=== PATIENT | female | born 1975 | race African-American/Black ===

== ENCOUNTER 2016-12-06 14:33 | Emergency (ER) | payer MEDICAID, OTHER ==
[~2016-12-06] VITALS: Ht 157.5 cm; Wt 79.4 kg
[2016-12-06] MEDS ORDERED: IPRATROPIUM BROM 0.5 MG/2.5ML INH SOL NEB ONE (15:30)
[2016-12-06] MEDS ORDERED: ALBUTEROL SULF 2.5 MG/0.5ML(0.5%) NEB SOLN NEB ONE (15:30)
[2016-12-06] MEDS ORDERED: cefTRIAXone SOD 1,000 MG VL IM ONE (15:30)
[2016-12-06] MEDS ORDERED: cloNIDine HCL 0.1 MG TAB PO ONE (15:30)
[2016-12-06] MEDS ORDERED: methylPREDNISolone SOD SUCC 125 MG/2 ML VL IM ONE (15:30)
[2016-12-06 16:47] VITALS: BP 129/90
== END 2016-12-06 16:46 | disposition home or self-care (01) ==
LOC: ER 14:33
DX: J20.9 Acute bronchitis, unspecified (principal); I10 Essential (primary) hypertension; F17.210 Nicotine dependence, cigarettes, uncomplicated
CPT/HCPCS: 94640; 96372; 99284; J0696; J2930

== ENCOUNTER 2018-06-06 15:00 | Emergency (ER) | payer MEDICAID ==
[~2018-06-06] VITALS: Ht 157.5 cm; Wt 79.8 kg
[2018-06-06 16:21] VITALS: BP 151/100
[2018-06-06] MEDS ORDERED: DEXAMETHASONE SOD PHOS 10MG/1ML VIAL INJ IM ONE (17:45)
[2018-06-06] MEDS ORDERED: KETOROLAC TROMETH 60MG/2ML VIAL IM ONE (17:45)
== END 2018-06-06 18:11 | disposition home or self-care (01) ==
LOC: ER 15:00
DX: S33.5XXA Sprain of ligaments of lumbar spine, initial encounter (principal); M54.16 Radiculopathy, lumbar region; M54.41 Lumbago with sciatica, right side; I10 Essential (primary) hypertension; F17.200 Nicotine dependence, unspecified, uncomplicated; X50.9XXA Other and unspecified overexertion or strenuous movements or postures, initial encounter; Y93.89 Activity, other specified; Y92.69 Other specified industrial and construction area as the place of occurrence of the external cause; Y99.8 Other external cause status
CPT/HCPCS: 96372; 99284; J1100; J1885

== ENCOUNTER 2018-08-20 13:27 | Emergency (ER) | payer MEDICAID ==
[~2018-08-20] VITALS: Ht 157.5 cm; Wt 78.0 kg
[2018-08-20 14:00] VITALS: BP 166/97
[2018-08-20 14:14] LABS: Urine Bacteria FEW /hpf (None Seen); Urine Blood 2+ /uL (Negative); Urine Mucus FEW (None Seen); Urine Specific Gravity 1.024 (1.001-1.035); Urine WBC 1 /hpf (0 - 5)
== END 2018-08-20 22:04 | disposition home or self-care (01) ==
LOC: ER 13:30
DX: D25.9 Leiomyoma of uterus, unspecified (principal); F17.210 Nicotine dependence, cigarettes, uncomplicated
CPT/HCPCS: 76830; 76856; 81001

== ENCOUNTER 2019-09-30 12:13 | Emergency (ER) | payer MEDICAID ==
[~2019-09-30] VITALS: Ht 157.5 cm; Wt 77.1 kg
[2019-09-30] MEDS ORDERED: LISINOPRIL 10 MG TAB ONE (12:20)
[2019-09-30] MEDS ORDERED: LISINOPRIL 10 MG TAB PO ONE (12:30)
[2019-09-30] MEDS ORDERED: KETOROLAC TROMETH 60MG/2ML VIAL IM ONE (17:15)
[2019-09-30 17:28] VITALS: BP 174/97
[2019-09-30 18:11] LABS: Urine Bacteria FEW /hpf (None Seen); Urine Blood Negative /uL (Negative); Urine Mucus FEW (None Seen); Urine Specific Gravity 1.018 (1.001-1.035); Urine WBC 3 /hpf (0 - 5)
== END 2019-09-30 18:23 | disposition home or self-care (01) ==
LOC: ER 12:13
DX: M54.16 Radiculopathy, lumbar region (principal); M54.41 Lumbago with sciatica, right side; I10 Essential (primary) hypertension; Z76.0 Encounter for issue of repeat prescription; Z32.02 Encounter for pregnancy test, result negative
CPT/HCPCS: 81001; 81025; 96372; 99283; J1885

== ENCOUNTER 2022-06-24 14:27 | Emergency (ER) | payer MEDICAID ==
[~2022-06-24] VITALS: Ht 157.5 cm; Wt 83.0 kg
[2022-06-24] MEDS ORDERED: cloNIDine HCL 0.1 MG TAB PO ONE (15:00)
[2022-06-24 15:38] VITALS: BP 200/117
[2022-06-24] MEDS ORDERED: CLON0.2T PO (16:43)
== END 2022-06-24 16:54 | disposition home or self-care (01) ==
LOC: ER 14:33
DX: S91.301A Unspecified open wound, right foot, initial encounter (principal); I10 Essential (primary) hypertension; F17.210 Nicotine dependence, cigarettes, uncomplicated; Z79.899 Other long term (current) drug therapy; W26.8XXA Contact with other sharp object(s), not elsewhere classified, initial encounter; Y93.89 Activity, other specified; Y92.89 Other specified places as the place of occurrence of the external cause; Y99.8 Other external cause status

== ENCOUNTER 2025-01-22 12:46 | Emergency (ER) | payer MEDICAID ==
[~2025-01-22] VITALS: Ht 157.5 cm; Wt 89.7 kg
[~2025-01-22 12:46] MED LIST: CLON0.2T PO
[2025-01-22] MEDS: HYDROcodone-ACET 5/325MG TAB PO ONE (13:15)
[2025-01-22] MEDS: cloNIDine HCL 0.1 MG TAB PO ONE (13:15)
--- NOTE | 2025-01-22 13:15 | ED.PDOC ---
GI ASSESSMENT HPI Comments A 49 year old female presents to the ED c/o lower abdominal pain. Patient states she has been experiencing lower abdominal pain and pelvic pain for the past 2 days. Patient notes she has a history of uterine fibroids in the past, but is not sure if this is what is causing her pain at this time. Patient also notes she has a history of hypertension, but has not taken her medication today as it is currently . Patient denies fever, SOB, chest pain, abdominal pain, nausea, vomiting, diarrhea, headache, dizziness. No other symptoms or modifying factors reported at this time. Patient is alert and oriented x4 and has a stable gait. Chief Complaint: Abdominal Pain Time Seen by MD: 13:03 Primary Care Provider: LAURA Sevilla Notes: Nurses Notes, Medications, Allergies Allergies: Coded Allergies: NO KNOWN ALLERGIES (Unverified , 09/30/19) Home Meds Active Scripts Clonidine Hydrochloride (Clonidine Hcl) 0.2 Mg Tab, 0.2 MG PO DAILY PRN for 20 Days, #20 TAB Prov:KASSIDY VEGA 06/24/22 Information Source: Patient Mode of Arrival: Ambulatory Timing: Days Duration: Since onset, Days Prehospital treatment: None Quality: Aching, Cramping Vomitus: None Stool: Normal Severity: Moderate Recent: None Recent Hx of: None Pain Location: Other (Lower abdomen) Modifying Factors: Nothing Associated sign and symptoms: Abdominal Pain Past Medical History PAST MEDICAL HISTORY: HTN Surgical History: Denies all surgeries [employer] History: Uterine Fibroids Family History Family History: Reviewed,noncontributory to illness Social History Smoker: Less Than 1 Pack/Day Alcohol: Denies ETOH Use Drugs: Denies Drug Use Lives In: Home Constitutional: denies: chills, diaphoresis, fatigue, fever, malaise, sweats, weakness, others EENTM: denies: blurred vision, double vision, ear bleeding, ear discharge, ear drainage, ear pain, ear ringing, eye pain, eye redness, hearing loss, mouth pain, mouth swelling, nasal discharge, nose bleeding, nose congestion, nose pain, photophobia, tearing, throat pain, throat swelling, voice changes, others Respiratory: denies: cough, hemoptysis, orthopnea, SOB at rest, shortness of breath, SOB with excertion, stridor, wheezing, others Cardiovascular: denies: chest pain, dizzy spells, diaphoresis, Dyspnea on exertion, edema, irregular heart beat, left arm pain, lightheadedness, palpitations, PND, syncope, others Gastrointestinal: reports: abdominal pain; denies: abdomen distended, blood streaked bowels, constipated, diarrhea, dysphagia, difficulty swallowing, hem atemesis, melena, nausea, poor appetite, poor fluid intake, rectal bleeding, rectal pain, vomiting, others Genitourinary: reports: pain (Pelvic pain); denies: abnormal vagina bleeding, burning, dyspareunia, dysuria, flank pain, frequency, hematuria, incontinence, , vagina discharge, urgency, others Neurological: denies: dizziness, fainting, headache, left sided numbness, left sided weakness, numbness, paresthesia, pre-existing deficit, right sided numbness, right sided weakness, seizure, speech problems, tingling, tremors, weakness, others Musculoskeletal: denies: back pain, gout, joint pain, joint swelling, muscle pain, muscle stiffness, neck pain, others Integumetry: denies: bruises, change in color, change in hair/nails, dryness, laceration, lesions, lumps, rash, wounds, others Allergic/Immunocompromised: denies: Difficulty Healing, Frequent Infections, Hives, Itching, others Hematologic/Lymphatic: denies: anemia, blood clots, easy bleeding, easy bruising, swollen glands, others Endocrine: denies: excessive hunger, excessive sweating, excessive thirst, excessive urination, flushing, intolerance to cold, intolerance to heat, unexplained weight gain, unexplained weight loss, others Psychiatric: denies: anxiety, bipolar disorder, depression, hopeless, panic disorder, schizophrenia, sleepless, suicidal, others All Other Systems: Reviewed and Negative Physical Exam General Appearance: No Apparent Distress, Normal HEENT: Normal ENT Inspection, Pharynx Normal, TMs Normal Neck: Full Range of Motion, Non-Tender, Normal, Normal Inspection Respiratory: Chest Non-Tender, Lungs Clear, No Accessory Muscle Use, No Respiratory Distress, Normal Breath Sounds Cardiovascular: No Edema, No JVD, No Murmur, No Gallop, Normal Peripheral Pulses, Regular Rate/Rhythm Breast Exam: Deferred Gastrointestinal: No Organomegaly, Non Tender, No Pulsatile Mass, Normal Bowel Sounds, Soft Genitalia: Deferred Pelvic: Deferred Rectal: Deferred Extremities: No calf tenderness, Normal capillary refill, Normal inspection, Normal range of motion, Non-tender, No pedal edema Musculoskeletal : Apperance: Normal Neurologic: Alert, advanced practice psychiatric nurse II-XII nml as Tested, No Motor Deficits, Normal Affect, Normal Mood, No Sensory Deficits Cerebellar Function: Normal Reflexes: Normal Skin: Dry, Normal Color, Warm Lymphatic: No Adenopathy Was a procedure done? Was a procedure done?: No GI differential Dx Differential Diagnosis: Constipation, Diverticular disease, Gastritis/PUD, Ovarian cyst/torsion, UTI, Dehydration, Food Poisoning, Viral, Kidney Stone Other Differential Diagnosis Uterine fibroid X-Ray, Labs, Meds, VS Vital Signs Date Time Temp Pulse Resp B/P (MAP) Pulse Ox O2 Delivery O2 Flow Rate FiO2 01/22/25 15:20 98.6 80 18 189/98 (128) 99 98.6 01/22/25 15:20 80 01/22/25 13:15 189/98 01/22/25 13:07 98.3 100 18 161/118 (132) 99 98.3 207/83 (124) Lab Test 01/22/25 13:21 01/22/25 13:05 Range/Units White Blood Count 5.4 4.4-10.8 10^3/uL Red Blood Count 5.08 4.0-5.20 10^6/uL Hemoglobin 15.9 12.2-16.2 g/dL Hematocrit 46.8 H 36.0-46.0 % Mean Corpuscular Volume 92.1 80.0-100.0 fL Mean Corpuscular Hemoglobin 31.3 28.0-32.0 pg Mean Corpuscular Hemoglobin Concent 33.9 32.0-36.0 g/dL Red Cell Distribution Width 14.0 11.8-14.3 % Platelet Count 211 140-450 10^3/uL Mean Platelet Volume 10.1 6.9-10.8 fL Neutrophils (%) (Auto) 47.9 37.0-80.0 % Lymphocytes (%) (Auto) 35.6 10.0-50.0 % Monocytes (%) (Auto) 13.4 H 0.0-12.0 % Eosinophils (%) (Auto) 2.3 0.0-7.0 % Basophils (%) (Auto) 0.8 0.0-2.0 % Neutrophils # (Auto) 2.6 1.6-8.6 10 ^3/uL Lymphocytes # (Auto) 1.9 0.4-5.4 10 ^3/uL Monocytes # (Auto) 0.7 0-1.3 10 ^3/uL Eosinophils # (Auto) 0.1 0-0.8 10 ^3/uL Basophils # (Auto) 0 0-0.2 10 ^3/uL Nucleated Red Blood Cells 0.1 % Sodium Level 138 136-145 mmol/L Potassium Level 3.6 3.5-5.1 mmol/L Chloride Level 108 H 98-107 mmol/L Carbon Dioxide Level 18 L 20-31 mmol/L Anion Gap 12 5-15 Blood Urea Nitrogen 7 L 9-23 mg/dL Creatinine 0.95 0.550-1.02 mg/dL Glomerular Filtration Rate Calc 74 >90 mL/min BUN/Creatinine Ratio 7.4 L 10.0-20.0 Serum Glucose 106 74-106 mg/dL Calcium Level 9.4 8.7-10.4 mg/dL Urine Color Yellow Yellow Urine Clarity Clear Clear Urine pH 6.0 5.0-9.0 Urine Specific [place] 1.021 1.001-1.035 Urine Protein Negative Negative Urine Ketones Negative Negative Urine Blood Negative Negative /uL Urine Nitrite Negative Negative Urine Bilirubin Negative Negative Urine Urobilinogen Normal Negative mg/dL Urine Leukocyte Esterase Negative Negative /uL Urine RBC 1 0 - 4 /hpf Urine Microscopic WBC < 1 0-5 /HPF Urine Squamous Epithelial Cells Few <5 /hpf Urine Bacteria None seen None Seen /hpf Urine Mucus Few None Seen Urine Glucose Normal Normal mg/dL Urine Test Negative Negative Current Medications Medications (Trade) Dose Ordered Sig/Elijah Route Start Time Stop Time Status Last Admin Acetaminophen/ Hydrocodone Bitart ([place] 5/325MG Tab) 1 tab ONCE ONCE PO 01/22/25 13:15 01/22/25 13:16 DC 01/22/25 13:15 Clonidine HCl (Catapres Tablet) 0.1 mg ONCE ONCE PO 01/22/25 13:15 01/22/25 13:16 DC 01/22/25 13:15 INDICATION: pain, history of fibroid TECHNIQUE: Multiple real-time grayscale transabdominal and TV sonographic images along with color and duplex Doppler of the uterus and ovaries were obtained. COMPARISON: None FINDINGS: The uterus measures 6 x 4 x 3 cm. The endometrial stripe measures 0.13cm. 1.4 cm fibroid The right ovary measures 2 x 2 x 1 cm. The left ovary measures 2 x 2 x 2 cm. 1 cm left ovarian cyst. Subsequent color and duplex Doppler interrogation of the ovaries demonstrated symmetric vascular flow to both ovaries, though this does not exclude the possibility of torsion due to the dual blood supply. IMPRESSION: 1. 1.4 cm fibroid. 2. IUD seen in good position . ATED BY: REAGAN VELAZCO MD DICTATED DATE/TIME: 01/22/25 1523 SIGNED BY: REAGAN VELAZCO MD SIGNED DATE/TIME: 01/22/25 152 CC: Exam: CT CT AB PEL WO CON-NO ORAL OR IV History: lower abdominal pain Comparison Study: None Technique: Multidetector spiral CT of the abdomen was performed from lung bases to pubic symphysis. Imaging was performed without IV contrast. Axial, coronal and sagittal multiplanar reformats were obtained from the axial data set by the technologist. Radiation Dose : 1. Abdomen/Pelvis: CTDIvol 23.61 mGy, DLP 1165.89 mGy*cm. Findings: Evaluation of solid organs is limited due to lack of intravenous contrast use. Lung Bases: No acute or significant lung base finding. Normal heart size. No pleural or pericardial effusion. Liver: The liver is normal in size. No focal lesions. Gallbladder and Biliary Tree: Unremarkable Spleen: Unremarkable Pancreas: The pancreas is grossly normal in appearance. Adrenal Glands: Unremarkable Kidneys: Kidneys are grossly normal without calculi or hydronephrosis. Bladder: Grossly unremarkable for degree of distention. Bowel: The stomach is grossly normal in appearance. Small bowel and colon are normal in caliber and distribution. The appendix is not visualized; however, no secondary findings of acute appendicitis identified. Diffuse colonic diverticulosis. Ascites: Absent Lymphadenopathy: No mesenteric, retroperitoneal or periportal lymphadenopathy. Abdominal Wall and Mesentery: Trace fat containing umbilical hernia. Vasculature: The visualized abdominal aorta is normal in size and caliber. Evaluation of abdominal and pelvic vessels is limited due to lack of intravenous contrast. Pelvic Organs: IUD seen within the uterus Musculoskeletal: No aggressive focal bony lesions, acute fractures or dislocation. Grade 1 anterolisthesis of L5 on S1 secondary to chronic spondylolysis IMPRESSION: 1. No acute abdominal or pelvic findings. Radiation optimization: All CT scans at this facility use at least one of these dose optimization techniques: automated exposure control mA and/or kV adjustment per patient size (includes targeted exams where dose is matched to clinical indication) or iterative reconstruction. ATED BY: ALESHIA REID MD DICTATED DATE/TIME: 01/22/25 154 SIGNED BY: ALESHIA REID MD SIGNED DATE/TIME: 01/22/251539 CC: X-Ray, Labs, Meds, VS Comment External medical records reviewed: [None] Independent historians: [None] Social determinants of health: [None] Labs ordered: CBC, BMP, UA, Urine Reviewed and interpreted results: CO2 18.0 Radiology imaging ordered: US Pelvis, CT Abd/Pel Treatments ordered: [place] 5/325mg PO, Clonidine 0.1mg PO Procedures performed: None Critical care time: None Based on the history of present illness and physical exam, patient will be discharged home. Shared decision making: Patient instructed to follow up with their primary care physician in 1-2 days for re-evaluation of symptoms. Patient verbalizes understanding to return to ED for new or worsening symptoms of if follow up with PCP cannot be obtained. Patient understands and feels comfortable going home at this time. All questions addressed at time of discharge. Images Reviewed?: Images reviewed and evaluated by me Time of 1ST Reevaluation: 16:03 Reevaluation 1ST: Improved Patient Education/Counseling: Diagnosis, Treatment, Need For Follow Up Family Education/Counseling: Diagnosis, Treatment, Need For Follow Up Departure 1 Departure Time of Disposition: 16:01 Impression: Primary Impression: Fibroid Additional Impressions: Pelvic pain Hypertension Qualified Codes: I10 - Essential (primary) hypertension Medical non-compliance Disposition: 01 HOME / SELF CARE / HOMELESS Condition: Stable Additional Instructions: Follow up with PCP and [facility] in 1-2 days. Take medications as prescribed. Return to ED for any new or worsening symptoms. e-Prescriptions Amlodipine Besylate (NORVASC TABLET) 5 Mg Tb 1 TAB PO DAILY, #30 TAB 5 Refills Prov: JIMMY PELLETIER MD 01/22/25 Cyclobenzaprine Hcl (CYCLOBENZAPRINE HCL) 7.5 Mg Tab 7.5 MG PO Q8HP PRN for 3 Days, #9 TAB Prov: JIMMY PELLETIER MD 01/22/25 Ibuprofen Micronized (MOTRIN TABLET) 600 Mg Tb 600 MG PO TID PRN, #40 TAB *Black box warning-NSAIDS can increase risk of PR & hypertension, GI irritation, ulceration, bleed, perferation. Do not use post cardiac surgery. Use short duration/lowest effective dose. Prov: JIMMY PELLETIER MD 01/22/25 Discharged With: Self Critical Care Note Critical Care Time?: No Stability Stability form required: No I personally scribed for JIMMY PELLETIER MD ([facility] on 01/22/25 at 13:15. Electronically submitted by Rupesh Walls ([employer]). I personally scribed for JIMMY PELLETIER MD ([facility]) on 01/22/25 at 13:16. Electronically submitted by Rupesh Walls ([email or web address]). I personally scribed for JIMMY PELLETIER MD ([facility]) on 01/22/25 at 15:38. Electronically submitted by Rupesh Walls ([employer]). I personally scribed for JIMMY PELLETIER MD ([facility]) on 01/22/25 at 15:56. Electronically submitted by Rupesh Walls ([employer]). JIMMY PELLETIER MD Jan 22, 2025 13:15
[2025-01-22 13:22] LABS: Urine Bacteria None Seen /hpf (None Seen)
[2025-01-22 13:43] LABS: Urine Blood Negative /uL (Negative); Urine Clarity Clear (Clear); Urine Color Yellow (Yellow); Urine Mucus FEW (None Seen); Urine Protein, UAD Negative (Negative); Urine Specific Gravity 1.021 (1.001-1.035); Urine Squamous Epithelial Cell FEW /hpf (<5); Urine Urobilinogen Normal (Negative); Urine WBC < 1 /HPF (0-5)
[2025-01-22 13:46] LABS: Basophils # (auto) 0 10 ^3/uL (0-0.2); Basophils % (auto) 0.8 % (0.0-2.0); Eosinophils # (auto) 0.1 10 ^3/uL (0-0.8); Eosinophils % (auto) 2.3 % (0.0-7.0); Hematocrit 46.8 % (36.0-46.0); Hemoglobin 15.9 g/dL (12.2-16.2); Lymphocytes # (auto) 1.9 10 ^3/uL (0.4-5.4); Lymphocytes % (auto) 35.6 % (10.0-50.0); Mean Corpuscular Hemoglobin 31.3 pg (28.0-32.0); Mean Corpuscular Hgb Conc. 33.9 g/dL (32.0-36.0); Mean Corpuscular Volume 92.1 fL (80.0-100.0); Monocytes # (auto) 0.7 10 ^3/uL (0-1.3); Monocytes % (auto) 13.4 % (0.0-12.0); Neutrophils # (auto) 2.6 10 ^3/uL (1.6-8.6); Neutrophils % (auto) 47.9 % (37.0-80.0); Nucleated Red Blood Cells % 0.1 %; Platelet Count (auto) 211 10^3/uL (140-450); Red Blood Cells 5.08 10^6/uL (4.0-5.20); White Blood Cell 5.4 10^3/uL (4.4-10.8)
[2025-01-22 15:10] LABS: Chloride 108 mmol/L (98-107); Potassium 3.6 mmol/L (3.5-5.1); Sodium 138 mmol/L (136-145)
[2025-01-22 15:15] LABS: Anion Gap 12 (5-15)
[2025-01-22 15:16] LABS: Calcium 9.4 mg/dL (8.7-10.4)
[2025-01-22 15:20] VITALS: BP 189/98; PULSE 80; RESP 18; TEMP 98.6; O2SAT 99
[2025-01-22 15:20] LABS: BUN/Creatinine Ratio 7.4 (10.0-20.0)
--- NOTE | 2025-01-22 15:26 | DVH ---
INDICATION: pain, history of fibroid TECHNIQUE: Multiple real-time grayscale transabdominal and TV sonographic images along with color an d duplex Doppler of the uterus and ovaries were obtained. COMPARISON: None FINDINGS: The uterus measures 6 x 4 x 3 cm. The endometrial stripe measures 0.13cm. 1.4 cm fibroid The right ovary measures 2 x 2 x 1 cm. The left ovary measures 2 x 2 x 2 cm. 1 cm left ovarian cyst. Subsequent color and duplex Doppler interrogation of the ovaries demonstrated symmetric vascular flow to both ovaries, though this does not exclude the possibility of torsion due to the dual blood suppl y. IMPRESSION: 1. 1.4 cm fibroid. 2. IUD seen in good position .
[2025-01-22 15:27] LABS: Blood Urea Nitrogen 7 mg/dL (9-23); Carbon Dioxide 18 mmol/L (20-31); Glucose 106 mg/dL (74-106)
--- NOTE | 2025-01-22 15:42 | DVH ---
Exam: CT CT AB PEL WO CON-NO ORAL OR IV History: lower abdominal pain Comparison Study: None Technique: Multidetector spiral CT of the abdomen was performed from lung bases to pubic symphysis. Imaging was performed without IV contrast. Axial, coronal and sagittal multiplanar reformats were ob tained from the axial data set by the technologist. Radiation Dose : 1. Abdomen/Pelvis: CTDIvol 23.61 mGy, DLP 1165.89 mGy*cm. Findings: Evaluation of solid organs is limited due to lack of intravenous contrast use. Lung Bases: No acute or significant lung base finding. Normal heart size. No pleural or pericardial effusion. Liver: The liver is normal in size. No focal lesions. Gallbladder and Biliary Tree: Unremarkable Spleen: Unremarkable Pancreas: The pancreas is grossly normal in appearance. Adrenal Glands: Unremarkable Kidneys: Kidneys are grossly normal without calculi or hydronephrosis. Bladder: Grossly unremarkable for degree of distention. Bowel: The stomach is grossly normal in appearance. Small bowel and colon are normal in caliber and d istribution. The appendix is not visualized; however, no secondary findings of acute appendicitis id entified. Diffuse colonic diverticulosis. Ascites: Absent Lymphadenopathy: No mesenteric, retroperitoneal or periportal lymphadenopathy. Abdominal Wall and Mesentery: Trace fat containing umbilical hernia. Vasculature: The visualized abdominal aorta is normal in size and caliber. Evaluation of abdominal a nd pelvic vessels is limited due to lack of intravenous contrast. Pelvic Organs: IUD seen within the uterus Musculoskeletal: No aggressive focal bony lesions, acute fractures or dislocation. Grade 1 anterolist hesis of L5 on S1 secondary to chronic spondylolysis IMPRESSION: 1. No acute abdominal or pelvic findings. Radiation optimization: All CT scans at this facility use at least one of these dose optimization galindo hniques: automated exposure control mA and/or kV adjustment per patient size (includes targeted exam s where dose is matched to clinical indication) or iterative reconstruction.
[2025-01-22] MEDS ORDERED: CYCL-838 PO (16:03)
[2025-01-22] MEDS ORDERED: IBU600T PO (16:03)
[2025-01-22] MEDS ORDERED: AML5T PO (16:03)
== END 2025-01-22 16:30 | disposition home or self-care (01) ==
LOC: ER 12:53
DX: D25.9 Leiomyoma of uterus, unspecified (principal); R10.2 Pelvic and perineal pain; I10 Essential (primary) hypertension; F17.210 Nicotine dependence, cigarettes, uncomplicated; Z91.199 Patient's noncompliance with other medical treatment and regimen due to unspecified reason; Z86.018 Personal history of other benign neoplasm; Z79.899 Other long term (current) drug therapy
CPT/HCPCS: 36415; 74176; 76830; 76856; 80048; 81001; 81025; 85025

== ENCOUNTER 2025-02-04 13:34 | Inpatient (IN) | payer MEDICAID ==
[~2025-02-04] VITALS: Ht 157.5 cm; Wt 99.0 kg
[~2025-02-04 13:34] MED LIST changes: +AML5T PO; +CYCL-838 PO; +IBU600T PO
--- NOTE | 2025-02-04 13:59 | ED.PDOC ---
History of Present Illness HPI Comments 49-year-old female came to the ER stating that she has been having abdominal discomfort mainly in the left lateral abdomen. Mostly just above the hip. She has been having this for many months mostly aggravating her in the past few weeks. She denies nausea vomiting diarrhea. She denies urinary symptoms. No fever cough. She has been able to ambulate without any difficulty. She does have a history of hypertension. Pain isn't aggravated by movement. Denies any other symptoms. Time Seen by MD: 13:41 Primary Care Provider: NONE Reviewed Notes: Nurses Notes, Medications, Allergies Allergies: Coded Allergies: NO KNOWN ALLERGIES (Unverified , 09/30/19) Home Meds Active Scripts Amlodipine Besylate (NORVASC TABLET) 5 Mg Tb, 1 TAB PO DAILY, #30 TAB 5 Refills Prov:JIMMY PELLETIER MD 01/22/25 Cyclobenzaprine Hcl (CYCLOBENZAPRINE HCL) 7.5 Mg Tab, 7.5 MG PO Q8HP PRN for 3 Days, #9 TAB Prov:JIMMY PELLETIER MD 01/22/25 Ibuprofen Micronized (MOTRIN TABLET) 600 Mg Tb, 600 MG PO TID PRN, #40 TAB *Black box warning-NSAIDS can increase risk of ME & hypertension, GI irritation, ulceration, bleed, perferation. Do not use post cardiac surgery. Use short duration/lowest effective dose. 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 Family History Family History: Reviewed,noncontributory to illness Social History Smoker: Less Than 1 Pack/Day Alcohol: Denies ETOH Use Drugs: Denies Drug Use Lives In: Home Constitutional: denies: chills, diaphoresis, fatigue, fever, malaise, sweats, weakness, others EENTM: denies: blurred vision, double vision, ear bleeding, ear discharge, ear drainage, ear pain, ear ringing, eye pain, eye redness, hearing loss, mouth pain, mouth swelling, nasal discharge, nose bleeding, nose congestion, nose pain, photophobia, tearing, throat pain, throat swelling, voice changes, others Respiratory: denies: cough, hemoptysis, orthopnea, SOB at rest, shortness of breath, SOB with excertion, stridor, wheezing, others Cardiovascular: denies: chest pain, dizzy spells, diaphoresis, Dyspnea on exertion, edema, irregular heart beat, left arm pain, lightheadedness, palpitations, PND, syncope, others Gastrointestinal: reports: abdominal pain; denies: abdomen distended, blood streaked bowels, constipated, diarrhea, dysphagia, difficulty swallowing, h ematemesis, melena, nausea, poor appetite, poor fluid intake, rectal bleeding, rectal pain, vomiting, others Genitourinary: denies: abnormal vagina bleeding, burning, dyspareunia, dysuria, flank pain, frequency, hematuria, incontinence, pain, , vagina discharge, urgency, others Neurological: denies: dizziness, fainting, headache, left sided numbness, left sided weakness, numbness, paresthesia, pre-existing deficit, right sided numbness, right sided weakness, seizure, speech problems, tingling, tremors, weakness, others Musculoskeletal: denies: back pain, gout, joint pain, joint swelling, muscle pain, muscle stiffness, neck pain, others Integumetry: denies: bruises, change in color, change in hair/nails, dryness, laceration, lesions, lumps, rash, wounds, others Allergic/Immunocompromised: denies: Difficulty Healing, Frequent Infections, Hives, Itching, others Hematologic/Lymphatic: denies: anemia, blood clots, easy bleeding, easy bruising, swollen glands, others Endocrine: denies: excessive hunger, excessive sweating, excessive thirst, excessive urination, flushing, intolerance to cold, intolerance to heat, unexplained weight gain, unexplained weight loss, others Psychiatric: denies: anxiety, bipolar disorder, depression, hopeless, panic disorder, schizophrenia, sleepless, suicidal, others Physical Exam General Appearance: Moderate Distress HEENT: Normal ENT Inspection, Pharynx Normal, TMs Normal Neck: Full Range of Motion, Non-Tender, Normal, Normal Inspection Respiratory: Chest Non-Tender, Lungs Clear, No Accessory Muscle Use, No Respiratory Distress, Normal Breath Sounds Cardiovascular: No Edema, No JVD, No Murmur, No Gallop, Normal Peripheral Pulses, Regular Rate/Rhythm Breast Exam: Deferred Gastrointestinal: No Organomegaly, Non Tender, No Pulsatile Mass, Normal Bowel Sounds, Soft Genitalia: Deferred Pelvic: Deferred Rectal: Deferred Extremities: No calf tenderness, Normal capillary refill, Normal inspection, Normal range of motion, Non-tender, No pedal edema Musculoskeletal : Apperance: Normal Neurologic: Alert, staffing mgr II-XII nml as Tested, No Motor Deficits, Normal Affect, Normal Mood, No Sensory Deficits Cerebellar Function: Normal Reflexes: Normal Skin: Dry, Normal Color, Warm Peripheral Pulses: 3+ Radial (R), 3+ Radial (L) Lymphatic: No Adenopathy Was a procedure done? Was a procedure done?: No Differential Dx Considerations may include: Anemia Electrolyte imbalance X-Ray, Labs, Meds, VS Vital Signs Date Time Temp Pulse Resp B/P (MAP) Pulse Ox O2 Delivery O2 Flow Rate FiO2 02/04/25 17:14 97.7 80 18 191/96 (127) 99 97.7 02/04/25 14:57 85 18 176/95 (122) 95 02/04/25 14:57 85 18 95 Room Air* 0 21 02/04/25 14:56 176/95 02/04/25 14:00 97.8 104 18 163/99 (120) 97 97.8 Lab Test 02/04/25 14:07 Range/Units White Blood Count 4.4 4.4-10.8 10^3/uL Red Blood Count 5.02 4.0-5.20 10^6/uL Hemoglobin 15.8 12.2-16.2 g/dL Hematocrit 46.3 H 36.0-46.0 % Mean Corpuscular Volume 92.3 80.0-100.0 fL Mean Corpuscular Hemoglobin 31.5 28.0-32.0 pg Mean Corpuscular Hemoglobin Concent 34.1 32.0-36.0 g/dL Red Cell Distribution Width 13.7 11.8-14.3 % Platelet Count 250 140-450 10^3/uL Mean Platelet Volume 9.9 6.9-10.8 fL Neutrophils (%) (Auto) 46.1 37.0-80.0 % Lymphocytes (%) (Auto) 41.7 10.0-50.0 % Monocytes (%) (Auto) 7.7 0.0-12.0 % Eosinophils (%) (Auto) 3.0 0.0-7.0 % Basophils (%) (Auto) 1.5 0.0-2.0 % Neutrophils # (Auto) 2.0 1.6-8.6 10 ^3/uL Lymphocytes # (Auto) 1.8 0.4-5.4 10 ^3/uL Monocytes # (Auto) 0.3 0-1.3 10 ^3/uL Eosinophils # (Auto) 0.1 0-0.8 10 ^3/uL Basophils # (Auto) 0.1 0-0.2 10 ^3/uL Nucleated Red Blood Cells 0.1 % Sodium Level 144 136-145 mmol/L Potassium Level 3.8 3.5-5.1 mmol/L Chloride Level 107 98-107 mmol/L Carbon Dioxide Level 27 20-31 mmol/L Anion Gap 10 5-15 Blood Urea Nitrogen 10 9-23 mg/dL Creatinine 1.03 H 0.550-1.02 mg/dL Glomerular Filtration Rate Calc 67 >90 mL/min BUN/Creatinine Ratio 9.7 L 10.0-20.0 Serum Glucose 125 H 74-106 mg/dL Calcium Level 9.9 8.7-10.4 mg/dL Current Medications Medications (Trade) Dose Ordered Sig/Elijah Route Start Time Stop Time Status Last Admin Amlodipine Besylate (Norvasc Tablet) 10 mg ONCE ONCE PO 02/04/25 14:00 02/04/25 14:01 DC 02/04/25 14:56 Patient alert. Complaining of abdominal pain. Vitals stable. Answering all questions. Abdomen is soft nontender. No sign of distress. No sepsis. No leg swelling. No shortness a breath. No chest pain. Blood pressure 194/115 in the triage. Was given Norvasc. She has been taking her blood pressure medication. She continues to have abdominal pain. CT of the abdomen. GI consultation. Establish intravenous access. Was given labetalol. Was given morphine. Was given Zofran. Blood sugar controlled with fluids. Explained to the patient. Continue monitoring. Time of 1ST Reevaluation: 13:57 Reevaluation 1ST: Unchanged Patient Education/Counseling: Diagnosis, Treatment, Prognosis, Need For Follow Up Family Education/Counseling: No Family Present SEPSIS Sepsis Screen Physician Orders Urinalysis (02/04/25 13:54) Ct Ab Pel Wo Con-No Oral Or Iv (02/04/25 17:33) Morphine Sulfate Injection (02/04/25 17:45) Ondansetron Hcl (Zofran) (02/04/25 17:45) Labetalol Hcl (Labetalol Hcl) (02/04/25 17:45) Vital Signs Date Time Temp Pulse Resp B/P (MAP) Pulse Ox O2 Delivery O2 Flow Rate FiO2 02/04/25 17:14 97.7 80 18 191/96 (127) 99 97.7 02/04/25 14:57 85 18 176/95 (122) 95 02/04/25 14:57 85 18 95 Room Air* 0 21 02/04/25 14:56 176/95 02/04/25 14:00 97.8 104 18 163/99 (120) 97 97.8 Laboratory Tests Test 02/04/25 14:07 White Blood Count 4.4 10^3/uL (4.4-10.8) Medications Medications Dose Ordered Sig/Elijah Route Start Time Stop Time Status Last Admin Dose Admin Amlodipine Besylate 10 mg ONCE ONCE PO 02/04/25 14:00 02/04/25 14:01 DC 02/04/25 14:56 Departure 1 Departure Time of Disposition: 13:58 Impression: Primary Impression: Hypertensive emergency Additional Impressions: Acute abdominal pain Uncontrolled diabetes mellitus Qualified Codes: E13.65 - Other specified diabetes mellitus with hyperglycemia Disposition: ADMITTED INPATIENT Admit to: Med Surg Condition: Guarded Critical Care Note Critical Care Time?: Yes (90 min-critical care time only) Critical care comment: Elevation blood pressure Stability Stability form required: No Heart Score Heart Score: Heart Score Response (Comments) Value History N/A 0 EKG N/A 0 Age N/A 0 Risk Factors N/A 0 Troponin N/A 0 Total 0 ROGERIO MOULTON MD Feb 04, 2025 13:59
[2025-02-04] MEDS ORDERED: LORazepam 0.5 MG TAB PO ONE (14:00)
[2025-02-04 14:17] LABS: Basophils # (auto) 0.1 10 ^3/uL (0-0.2); Basophils % (auto) 1.5 % (0.0-2.0); Eosinophils # (auto) 0.1 10 ^3/uL (0-0.8); Hematocrit 46.3 % (36.0-46.0); Hemoglobin 15.8 g/dL (12.2-16.2); Lymphocytes # (auto) 1.8 10 ^3/uL (0.4-5.4); Lymphocytes % (auto) 41.7 % (10.0-50.0); Mean Corpuscular Hemoglobin 31.5 pg (28.0-32.0); Mean Corpuscular Hgb Conc. 34.1 g/dL (32.0-36.0); Mean Corpuscular Volume 92.3 fL (80.0-100.0); Monocytes # (auto) 0.3 10 ^3/uL (0-1.3); Monocytes % (auto) 7.7 % (0.0-12.0); Neutrophils % (auto) 46.1 % (37.0-80.0); Nucleated Red Blood Cells % 0.1 %; Platelet Count (auto) 250 10^3/uL (140-450); Red Blood Cells 5.02 10^6/uL (4.0-5.20); Red Cell Distribution Width 13.7 % (11.8-14.3); White Blood Cell 4.4 10^3/uL (4.4-10.8)
[2025-02-04 14:26] LABS: Chloride 107 mmol/L (98-107); Potassium 3.8 mmol/L (3.5-5.1); Sodium 144 mmol/L (136-145)
[2025-02-04 14:27] LABS: Anion Gap 10 (5-15); Carbon Dioxide 27 mmol/L (20-31)
[2025-02-04 14:28] LABS: Calcium 9.9 mg/dL (8.7-10.4)
[2025-02-04 14:32] LABS: BUN/Creatinine Ratio 9.7 (10.0-20.0); Blood Urea Nitrogen 10 mg/dL (9-23); Glucose 125 mg/dL (74-106)
[2025-02-04] MEDS: amLODIPine BESYLATE 5 MG TAB PO ONE (14:56)
[2025-02-04 14:57] VITALS: PULSE 85; RESP 18; O2SAT 95
[2025-02-04] MEDS: ONDANSETRON HCL 4 MG/2 ML VIAL IV ONE (18:43)
[2025-02-04] MEDS: LABETALOL HCL 20 MG/4 ML VL IV ONE (18:43)
[2025-02-04] MEDS: MORPHINE SULFATE 4 MG/ML SYR/VIAL IV ONE (18:44)
--- NOTE | 2025-02-04 19:13 | DVH ---
CT SCAN ABDOMEN AND PELVIS WITHOUT CONTRAST CLINICAL HISTORY: diverticula TECHNIQUE: Helical axial images are obtained from the lung bases through the pelvis without oral cont rast. No intravenous contrast was administered. Coronal and sagittal reformatted images were generate d from thin section reconstructions. One or more of the following radiation dose reduction techniques were used for this examination: automated exposure control, adjustment of the mA and/or kV according to patient size, use of iterative reconstruction technique. COMPARISON: CT CT AB PEL WO CON-NO ORAL OR IV on DOS: 01/22/25 FINDINGS: LOWER THORAX: Atelectasis/scarring in the lingula and left lung base. ABDOMEN AND PELVIS: Evaluation of visceral and vascular structures is limited due to lack of contrast administration. As visualized, the unenhanced liver, spleen, pancreas and adrenals appear grossly unremarkable. No si zable, radiopaque cholelithiasis or biliary ductal dilatation. No hydroureteronephrosis or sizable, obstructing urinary tract calculi identified. No evidence of abdominal aortic aneurysm. No evidence of bowel obstruction. Normal caliber appendix. Colonic diverticulosis without definite CT evidence of diverticulitis at this time. No free intraperitoneal air or fluid identified. No sizable bladder calculus. T-shaped intrauterine device again noted. No destructive osseous lesions identified. Advanced degenerative disc disease at L5-S1 with chronic a ppearing spondylolysis and grade 1 anterolisthesis. IMPRESSION: Colonic diverticulosis without CT evidence of diverticulitis at this time.
[2025-02-04 20:20] LABS: Urine Bacteria None Seen /hpf (None Seen)
[2025-02-04 20:31] LABS: Urine Blood Negative /uL (Negative); Urine Clarity Clear (Clear); Urine Color Yellow (Yellow); Urine Mucus FEW (None Seen); Urine Protein, UAD TRACE (Negative); Urine Specific Gravity 1.029 (1.001-1.035); Urine Squamous Epithelial Cell FEW /hpf (<5); Urine Urobilinogen Normal (Negative); Urine WBC 4 /HPF (0-5); Urine pH 5.5 (5.0-9.0)
[2025-02-04] MEDS ORDERED: ONDANSETRON HCL 4 MG/2 ML VIAL IV PRN (21:00)
[2025-02-04] MEDS ORDERED: MORPHINE SULFATE INJ 2 MG/ml SYRG IV PRN (21:00)
[2025-02-04] MEDS ORDERED: DOCUSATE SOD 100 MG CAP PO PRN (21:00)
[2025-02-04] MEDS ORDERED: NITROGLYCERIN 0.4 MG SL TAB SL PRN (21:00)
--- NOTE | 2025-02-04 21:31 | DVHHPRES ---
History of Present Illness Resident Creating Document: EAGLE [facility] RESIDENT History of Present Illness Ms. Corrales, a 49-year-old female with a history of hypertension, nicotine abuse, chronic back pain, obesity and uterine fibroids presents to the ER with several months of abdominal discomfort localized to the left lateral abdomen, just above the hip, which has worsened over the past few weeks. She denies any associated symptoms such as nausea, vomiting, diarrhea, urinary issues, fever, or cough, and reports no difficulty with ambulation. The pain is not exacerbated by movement, and she has no history of surgeries. Past Medical History hypertension, nicotine abuse, chronic back pain, obesity and uterine fibroids Past Surgical History: None Family History: None, Hypertension, Other (Noncontributory) Smoke: # pack years (1 pack per day, 25 pack-year smoking history.) ALCOHOL: rare Drugs: None Lives: with Family Domestic Violence: Neg Review of Systems Constitutional: Yes: Malaise; No: Fever, Chills, Sweats, Weakness, Other Eyes: No: Pain, Vision change, Conjunctivae inflammation, Eyelid inflammation, Other, Redness ENT: No: Ear pain, Ear discharge, Nose pain, Nose discharge, Nose congestion, Mouth pain, Mouth swelling, Throat pain, Throat swelling, Other Respiratory: No: Cough, Dry, Shortness of breath, SOB with excertion, Wheezing, Hemoptysis, Pleuritic Pain, Sputum, Wheezing, Other Cardiovascular: No: Chest Pain, Palpitations, Orthopnea, Paroxysmal Noc. Dyspnea, Edema, Lt Headedness, Other Gastrointestinal: Abdominal Pain, Constipation; No: Nausea, Vomiting, Diarrhea, Melena, Hematochezia, Other Genitourinary: Dysuria, Frequency; No Incontinence, No Hematuria, No Retention, No Other Musculoskeletal: No: other, neck pain, shoulder pain, arm pain, back pain, hand pain, leg pain, foot pain Skin: No: Rash, Lesions, Jaundice, Bruising, Other Neurological: No: Weakness, Numbness, Incoordination, Change in speech, Confusion, Seizures, Other Allergies: Coded Allergies: NO KNOWN ALLERGIES (Unverified , 09/30/19) Medications Current Medications Medications Dose Ordered Sig/Elijah Route Start Time Stop Time Status Last Admin Dose Admin Sodium Chloride 1,000 ml @ 60 mls/hr [id number] IV 02/04/25 21:00 Ondansetron HCl 4 mg Q4HP PRN IV 02/04/25 21:00 Docusate Sodium 100 mg BIDPRN PRN PO 02/04/25 21:00 Acetaminophen 650 mg Q6HP PRN PO 02/04/25 21:00 Morphine Sulfate 2 mg Q4HPRN PRN IV 02/04/25 21:00 Nitroglycerin 0.4 mg Q5MINP PRN SL 02/04/25 21:00 Morphine Sulfate 2 mg Q30M PRN IV 02/04/25 21:00 Ceftriaxone Sodium 50 ml @ 100 mls/hr DAILY@09 IV 02/04/25 21:15 UNV Cyclobenzaprine HCl 5 mg Q8HPRN PRN PO 02/04/25 21:15 UNV Pantoprazole Sodium 40 mg DAILY IV 02/05/25 10:00 UNV Amlodipine Besylate 10 mg DAILY PO 02/05/25 10:00 UNV Exam Vital Signs Vital Signs Date Time Temp Pulse Resp B/P (MAP) Pulse Ox O2 Delivery O2 Flow Rate FiO2 02/04/25 19:43 73 133/70 02/04/25 19:19 16 95 02/04/25 17:14 97.7 97.7 02/04/25 14:57 Room Air* 0 21 General Appearance: Alert, Oriented X3, Cooperative, mild distress HEENT: Atraumatic, PERRLA, EOMI, Other (Mildly dehydrated) Respiratory: Clear to auscultation, Normal air movement, Other (Room air) Cardiovascular: Regular rate, Normal S1, Normal S2, No murmurs (No adventitious sound) Abdominal: Normal bowel sounds, Soft, No hepatospenomegaly, No masses, Other (Supra pubic mild discomfort on deep palpation, no CVA angle tenderness. ) Extremities: No clubbing, No cyanosis, No edema, Other Skin: No rashes, No breakdown, No significant lesion Neuro: Normal gait, Normal speech, Strength at 5/5 X4 ext, Normal tone, Sensation intact, Cranial nerves 3-12 NL, Reflexes 2+ Psych/Mental Status: Mental status NL, Mood NL Labs/Xrays Labs Test 02/04/25 20:03 02/04/25 14:07 Range/Units Urine Color Yellow Yellow Urine Clarity Clear Clear Urine pH 5.5 5.0-9.0 Urine Specific [place]lings 1.029 1.001-1.035 Urine Protein Trace H Negative Urine Ketones Negative Negative Urine Blood Negative Negative /uL Urine Nitrite Negative Negative Urine Bilirubin Negative Negative Urine Urobilinogen Normal Negative mg/dL Urine Leukocyte Esterase 1+ Negative /uL Urine RBC 1 0 - 4 /hpf Urine Microscopic WBC 4 0-5 /HPF Urine Squamous Epithelial Cells Few <5 /hpf Urine Bacteria None seen None Seen /hpf Urine Mucus Few None Seen Urine Glucose Normal Normal mg/dL White Blood Count 4.4 4.4-10.8 10^3/uL Red Blood Count 5.02 4.0-5.20 10^6/uL Hemoglobin 15.8 12.2-16.2 g/dL Hematocrit 46.3 H 36.0-46.0 % Mean Corpuscular Volume 92.3 80.0-100.0 fL Mean Corpuscular Hemoglobin 31.5 28.0-32.0 pg Mean Corpuscular Hemoglobin Concent 34.1 32.0-36.0 g/dL Red Cell Distribution Width 13.7 11.8-14.3 % Platelet Count 250 140-450 10^3/uL Mean Platelet Volume 9.9 6.9-10.8 fL Neutrophils (%) (Auto) 46.1 37.0-80.0 % Lymphocytes (%) (Auto) 41.7 10.0-50.0 % Monocytes (%) (Auto) 7.7 0.0-12.0 % Eosinophils (%) (Auto) 3.0 0.0-7.0 % Basophils (%) (Auto) 1.5 0.0-2.0 % Neutrophils # (Auto) 2.0 1.6-8.6 10 ^3/uL Lymphocytes # (Auto) 1.8 0.4-5.4 10 ^3/uL Monocytes # (Auto) 0.3 0-1.3 10 ^3/uL Eosinophils # (Auto) 0.1 0-0.8 10 ^3/uL Basophils # (Auto) 0.1 0-0.2 10 ^3/uL Nucleated Red Blood Cells 0.1 % Sodium Level 144 136-145 mmol/L Potassium Level 3.8 3.5-5.1 mmol/L Chloride Level 107 98-107 mmol/L Carbon Dioxide Level 27 20-31 mmol/L Anion Gap 10 5-15 Blood Urea Nitrogen 10 9-23 mg/dL Creatinine 1.03 H 0.550-1.02 mg/dL Glomerular Filtration Rate Calc 67 >90 mL/min BUN/Creatinine Ratio 9.7 L 10.0-20.0 Serum Glucose 125 H 74-106 mg/dL Calcium Level 9.9 8.7-10.4 mg/dL Assessment/Plan Assessment/Plan # Hypertensive urgency /Emergency ( accounting for mild kidney injury): 190s/ 96 maximum blood pressure noted , within next 24-48 hours slow blood pressure control, lifestyle modification, weight loss, ambulatory bloodcy pressure monitoring, medication optimization. Outpatient close follow up with PCP. routine workup to complete. status post amlodipine / Norvasc BP is improving. # UTI, likely due to Gram-negative: Associated symptom , suprapubic abdominal discomfort. Leukocyte esterase positive in the UA, nitrite negative, urine culture, blood culture to continue, IV ceftriaxone to continue, CT abdomen pelvis unremarkable. Ruled out , although low probability. # intermittent back pain: Patient takes ibuprofen at home, and as needed cyclobenzaprine Q 8 p.r.n., we will continue in-hospital, as needed. No signs of GI bleed, anemia, but precautions regarding long-term ibuprofen use and GI side effects to be explained in details. # History of essential hypertension: 2 g salt restricted cardiac diet, home amlodipine+ Clonidine to continue. [place] blood pressure as per aha / ACC guidelines 140 blood/90 or below. avoid NSAIDs to better control of essential hypertension. # Active nicotine abuse: Patient has smoked 1 pack of cigarette each day , 11 minute bedside smoking cessation counseling done. As needed nicotine patch. # possible CLOTILDE due to VMN: Likely prerenal, baseline not well established, mild IV fluid challenge, avoid nephrotoxins including NSAIDs and serial renal function follow up. # grade 2 obesity: BMI 36.3, weight loss counseling done. Healthy diet, exercise and healthy lifestyle promoted. Check HbA1c, TSH and lipid panel. # Colonic diverticulosis without CT evidence of diverticulitis at this time: Check lipase to rule out any other intra-abdominal pathology , continue high- fiber diet, avoid constipation. Advised regarding outpatient follow up with age-appropriate colonoscopy for colon cancer screening. # History of uterine fibroids # GI prophylaxis: PPI IV continue. # DVT prophylaxis: Patient is fairly mobile, continue mobility no need of chemical DVT prophylaxis: If a mobile can consider SCDs. PCP: Specialist Relevant To Admission: None: No need of inpatient consultation. Case discussed with Dr. Sutherland. Code Status: Full Code. Goals of care and plan of care discussion needed total 31 minutes bedside. Patient is agreeable to the care, inpatient med surge level of Inpatient hospital care. Plan discussed with: Patient My Orders Orders - EAGLE MARIN RESIDENT Procedure Category Date Status Time Admit ADMIT 02/04/25 Transmitted 20:48 Allergies JOHNNA 02/04/25 In Process 20:48 Code Status CODE 02/04/25 Transmitted 20:48 Sodium Chloride 0.9% PHA 02/04/25 In Process 21:00 Ondansetron Hcl PHA 02/04/25 In Process (Zofran) 21:00 Docusate Sodium PHA 02/04/25 In Process Capsule (Colace 21:00 Complete Blood Count LAB 02/05/25 Verified 04:00 Comprehensive LAB 02/05/25 Verified Metabolic Panel 04:00 Cardiac DIET 02/05/25 Transmitted Diet-2gna,Lofat,Lochol Breakfast Condition: Fair JOHNNA 02/04/25 In Process 20:48 Acetaminophen Tablet PHA 02/04/25 In Process (Tylenol Tablet) 21:00 Morphine Sulfate PHA 02/04/25 In Process Injection 21:00 Sequential JOHNNA 02/04/25 In Process Compression Device Nitroglycerin PHA 02/04/25 In Process Sublingual (Ntrostat 21:00 Morphine Sulfate PHA 02/04/25 In Process Injection 21:00 Oxygen By Nasal RT 02/04/25 Transmitted Cannula 20:48 Stat Ekg For Chest JOHNNA 02/04/25 In Process Pain 20:48 Notify Md Of Changes JOHNNA 02/04/25 In Process From Base 20:48 Steel Layer For JOHNNA 02/04/25 In Process 24 Hours 20:48 Emergency Dysrhythmia JOHNNA 02/04/25 In Process Protocol 20:48 Rhythm Strips Once JOHNNA 02/04/25 In Process Every Shift 20:48 Ceftriaxone 1gm/50ml PHA 02/04/25 In Process D5w (Rocephin) 21:15 Blood Culture LYLY 02/04/25 Logged 21:13 Urine Bacterial LYLY 02/04/25 Logged Culture 21:13 Cyclobenzaprine PHA 02/04/25 In Process Tablet (Flexeril 21:15 Beta Hcg, Quantitative LAB 02/04/25 Logged 21:13 Pantoprazole PHA 02/05/25 In Process (Protonix) 10:00 Thyroid Stimulating LAB 02/04/25 Logged Hormone 21:13 Amlodipine Tablet PHA 02/05/25 In Process (Norvasc Tablet) 10:00 Hepatic Panel LAB 02/04/25 Logged 21:17 Date of Service: Feb 04, 2025 Billing Provider: NICK SUTHERLAND MD Common Visit Codes: [id number] INP/OBS CARE (HIGH) Secondary Visit Codes: [id number] CARE PLAN 30 MINUTES EAGLE MARIN RESIDENT Feb 04, 2025 21:31
[2025-02-04 22:17] LABS: Thyroid Stimulating Hormone 0.97 uIU/mL (0.55-4.78)
[2025-02-04 22:22] LABS: Beta HCG, Quantitative 1.7 mIU/mL (1.5-4.2)
[2025-02-04 22:31] LABS: Albumin 4.5 g/dL (3.2-4.8); Aspartate Aminotransferase 13 U/L (<34); Bilirubin, Direct 0.2 mg/dL (<0.3); Bilirubin, Total 0.5 mg/dL (0.2-1.0); Blood Alcohol 3.6 mg/dL (<10); Total Protein 7.4 g/dL (5.7-8.2)
[2025-02-04 22:54] LABS: Alanine Aminotransferase < 9 U/L (7-40); Alkaline Phosphatase 128 U/L (46-116)
[2025-02-04 23:39] LABS: Amphetamine Screen, Urine Neg (NEGATIVE); Barbiturate Scree,Urine Neg (NEGATIVE); Opiate Scree,Urine Pos (NEGATIVE); Phencyclidine Screen, Urine Neg (NEGATIVE)
[2025-02-04 23:40] LABS: Benzodiazephine Screen, Urine Neg (NEGATIVE); Cannabinoid Screen, Urine Neg (NEGATIVE); Cocaine Screen, Urine Neg (NEGATIVE)
[2025-02-05] VITALS (9 sets, daily range): BP systolic 120–145; BP diastolic 73–87; PULSE 63–95; RESP 14–18; TEMP 97.5–98.1; O2SAT 97–100
[2025-02-05] MEDS: cefTRIAXone 1GM/50ML D5W 50 ML IV SCH (01:32)
[2025-02-05] MEDS: SODIUM CHLORIDE 0.9% 1,000 ML IV SCH (01:33)
[2025-02-05] MEDS: PANTOPRAZOLE 40 MG/10 ML VIAL INJ IV ONE (01:33)
[2025-02-05 08:09] LABS: Basophils # (auto) 0.1 10 ^3/uL (0-0.2); Basophils % (auto) 1.3 % (0.0-2.0); Eosinophils # (auto) 0.2 10 ^3/uL (0-0.8); Eosinophils % (auto) 3.9 % (0.0-7.0); Hematocrit 46.2 % (36.0-46.0); Hemoglobin 15.7 g/dL (12.2-16.2); Lymphocytes # (auto) 2.4 10 ^3/uL (0.4-5.4); Mean Corpuscular Hemoglobin 31.4 pg (28.0-32.0); Mean Corpuscular Hgb Conc. 33.9 g/dL (32.0-36.0); Mean Corpuscular Volume 92.5 fL (80.0-100.0); Monocytes % (auto) 16.5 % (0.0-12.0); Neutrophils # (auto) 2.3 10 ^3/uL (1.6-8.6); Neutrophils % (auto) 38.3 % (37.0-80.0); Nucleated Red Blood Cells % 0.1 %; Platelet Count (auto) 220 10^3/uL (140-450); Red Blood Cells 4.99 10^6/uL (4.0-5.20); White Blood Cell 5.9 10^3/uL (4.4-10.8)
[2025-02-05 08:27] LABS: Albumin 4.3 g/dL (3.2-4.8); Anion Gap 9 (5-15); Aspartate Aminotransferase 12 U/L (<34); Bilirubin, Total 0.3 mg/dL (0.2-1.0); Blood Urea Nitrogen 11 mg/dL (9-23); Calcium 9.4 mg/dL (8.7-10.4); Carbon Dioxide 24 mmol/L (20-31); Cholesterol 154 mg/dL (< 200); Potassium 3.9 mmol/L (3.5-5.1); Sodium 143 mmol/L (136-145); Triglycerides 91 mg/dL (< 150)
[2025-02-05 08:28] LABS: Alanine Aminotransferase < 9 U/L (7-40); Alkaline Phosphatase 125 U/L (46-116); Chloride 110 mmol/L (98-107); Glucose 106 mg/dL (74-106); HDL Cholesterol 34 mg/dL (40-59); LDL Cholesterol 115 mg/dL (< 100)
[2025-02-05] MEDS: PANTOPRAZOLE 40 MG/10 ML VIAL INJ IV SCH (08:55)
[2025-02-05] MEDS: amLODIPine BESYLATE 5 MG TAB PO SCH (08:56)
[2025-02-05] MEDS: ACETAMINOPHEN 325 MG TAB PO PRN (16:13)
[2025-02-05] MEDS: CYCLOBENZAPRINE HCL 10 MG TAB PO PRN (16:14)
[2025-02-05] MEDS: MORPHINE SULFATE INJ 2 MG/ml SYRG IV PRN (16:35)
[2025-02-06] VITALS (8 sets, daily range): BP systolic 105–146; BP diastolic 57–99; PULSE 57–94; RESP 17–21; TEMP 96.2–98.5; O2SAT 97–99
--- NOTE | 2025-02-06 11:55 | DVHPN2 ---
Reviewed: Care Plan, H&P, Labs, Medications, Previous Orders Changes from previous H/P or p: No Changes General: Per HPI Eyes: No Pain, No Vision change, No Conjunctivae inflammation, No Eyelid inflammation, No Other, No Redness ENT: No Ear pain, No Ear discharge, No Nose pain, No Nose discharge, No Nose congestion, No Mouth pain, No Mouth swelling, No Throat pain, No Throat swelling, No Other Cardiovascular: No Chest Pain, No Palpitations, No Orthopnea, No Paroxysmal Noc. Dyspnea, No Edema, No Lt Headedness, No Other Respiratory: No Cough, No Dry, No Shortness of breath, No SOB with excertion, No Wheezing, No Hemoptysis, No Pleuritic Pain, No Sputum, No Other Gastrointestinal: No Nausea, No Vomiting; Abdominal Pain; No Diarrhea; C onstipation; No Melena, No Hematochezia, No Other Genitourinary: Dysuria, Frequency; No Incontinence, No Hematuria, No Retention, No Other Musculoskeletal: No other, No neck pain, No shoulder pain, No arm pain, No back pain, No hand pain, No leg pain, No foot pain Skin: No Rash, No Lesions, No Jaundice, No Bruising, No Other Objective Vitals Vital Signs Date Time Temp Pulse Resp B/P (MAP) Pulse Ox O2 Delivery O2 Flow Rate FiO2 02/06/25 09:27 105/65 02/06/25 09:07 96.9 82 21 99 96.9 02/06/25 07:50 Room Air* 0 21 Intake/Output Intake and Output 02/06/25 07:00 Intake Total 1050 ml Balance 1050 ml Intake Oral 300 ml IV Total 750 ml # Voids 1 General Appearance: Alert, Oriented X3, Cooperative HEENT: Atraumatic Neck: Carotid Bruits [place] Medications Current Medications Medications Dose Ordered Sig/Elijah Route Start Time Stop Time Status Last Admin Dose Admin Sodium Chloride 1,000 ml @ 60 mls/hr [id number] IV 02/04/25 21:00 02/05/25 22:51 60 MLS/HR Ondansetron HCl 4 mg Q4HP PRN IV 02/04/25 21:00 Docusate Sodium 100 mg BIDPRN PRN PO 02/04/25 21:00 Acetaminophen 650 mg Q6HP PRN PO 02/04/25 21:00 02/05/25 16:13 650 MG Morphine Sulfate 2 mg Q4HPRN PRN IV 02/04/25 21:00 02/06/25 05:46 2 MG Nitroglycerin 0.4 mg Q5MINP PRN SL 02/04/25 21:00 Morphine Sulfate 2 mg Q30M PRN IV 02/04/25 21:00 Ceftriaxone Sodium 50 ml @ 100 mls/hr DAILY@09 IV 02/04/25 21:15 02/06/25 09:26 100 MLS/HR Cyclobenzaprine HCl 5 mg Q8HPRN PRN PO 02/04/25 21:15 02/05/25 16:14 5 MG Pantoprazole Sodium 40 mg DAILY IV 02/05/25 10:00 02/06/25 09:28 40 MG Amlodipine Besylate 10 mg DAILY PO 02/05/25 10:00 02/06/25 09:27 10 MG Laboratory Results Laboratory Tests 02/05/25 07:35 Urinalysis Test 02/04/25 20:03 Urine Color Yellow (Yellow) Urine Clarity Clear (Clear) Urine pH 5.5 (5.0-9.0) Urine Specific [place] 1.029 (1.001-1.035) Urine Protein Trace (Negative) H Urine Ketones Negative (Negative) Urine Blood Negative /uL (Negative) Urine Nitrite Negative (Negative) Urine Bilirubin Negative (Negative) Urine Urobilinogen Normal mg/dL (Negative) Urine Leukocyte Esterase 1+ /uL (Negative) Urine RBC 1 /hpf (0 - 4) Urine Microscopic WBC 4 /HPF (0-5) Urine Squamous Epithelial Cells Few /hpf (<5) Urine Bacteria None seen /hpf (None Seen) Urine Mucus Few (None Seen) Urine Glucose Normal mg/dL (Normal) Microbiology Microbiology Date/Time Source Procedure Growth Status 02/04/25 22:07 Blood Blood Culture - Preliminary NO GROWTH AFTER 24 HOURS OF INCUBATION. Resulted 02/04/25 20:03 Voided Urine Urine Culture - Preliminary Resulted Labs and/or images reviewed: Labs reviewed by me, Image(s) reviewed by me Assessment/Plan Assessment/Plan # Hypertensive urgency /Emergency ( accounting for mild kidney injury): 190s/ 96 maximum blood pressure noted , # UTI, likely due to Gram-negative: # intermittent back pain: # History of essential hypertension: # Active nicotine abuse: # possible CLOTILDE due to VMN: # grade 2 obesity: # Colonic diverticulosis without CT evidence of diverticulitis at this time: # History of uterine fibroids # GI prophylaxis: # DVT prophylaxis: #ovarian cyst #his of fibroid 02/05/25: pain control, complained of pain in left lower back request to have obgyn evaluation Plan discussed with: Patient My Orders Orders - CHEIRSE CROCKER DO Procedure Category Date Status Time Mrsa Screen LYLY 02/05/25 In Process 08:10 Date of Service: Feb 05, 2025 Billing Provider: CHERISE CROCKER DO Common Visit Codes: [id number] INP/OBS CARE(HIGH) CHERISE CROCKER DO Feb 06, 2025 11:55
--- NOTE | 2025-02-06 11:56 | DVHPN2 ---
Reviewed: Care Plan, H&P, Labs, Medications Changes from previous H/P or p: No Changes General: Per HPI Eyes: No Pain, No Vision change, No Conjunctivae inflammation, No Eyelid inflammation, No Other, No Redness ENT: No Ear pain, No Ear discharge, No Nose pain, No Nose discharge, No Nose congestion, No Mouth pain, No Mouth swelling, No Throat pain, No Throat swelling, No Other Cardiovascular: No Chest Pain, No Palpitations, No Orthopnea, No Paroxysmal Noc. Dyspnea, No Edema, No Lt Headedness, No Other Respiratory: No Cough, No Dry, No Shortness of breath, No SOB with excertion, No Wheezing, No Hemoptysis, No Pleuritic Pain, No Sputum, No Other Gastrointestinal: No Nausea, No Vomiting; Abdominal Pain; No Diarrhea; C onstipation; No Melena, No Hematochezia, No Other Genitourinary: Dysuria, Frequency; No Incontinence, No Hematuria, No Retention, No Other Musculoskeletal: No other, No neck pain, No shoulder pain, No arm pain, No back pain, No hand pain, No leg pain, No foot pain Skin: No Rash, No Lesions, No Jaundice, No Bruising, No Other Objective Vitals Vital Signs Date Time Temp Pulse Resp B/P (MAP) Pulse Ox O2 Delivery O2 Flow Rate FiO2 02/06/25 09:27 105/65 02/06/25 09:07 96.9 82 21 99 96.9 02/06/25 07:50 Room Air* 0 21 Intake/Output Intake and Output 02/06/25 07:00 Intake Total 1050 ml Balance 1050 ml Intake Oral 300 ml IV Total 750 ml # Voids 1 General Appearance: Alert, Oriented X3, Cooperative, No acute distress HEENT: Atraumatic Cardiovascular: Regular rate, Normal S1 Medications Current Medications Medications Dose Ordered Sig/Elijah Route Start Time Stop Time Status Last Admin Dose Admin Sodium Chloride 1,000 ml @ 60 mls/hr [id number] IV 02/04/25 21:00 02/05/25 22:51 60 MLS/HR Ondansetron HCl 4 mg Q4HP PRN IV 02/04/25 21:00 Docusate Sodium 100 mg BIDPRN PRN PO 02/04/25 21:00 Acetaminophen 650 mg Q6HP PRN PO 02/04/25 21:00 02/05/25 16:13 650 MG Morphine Sulfate 2 mg Q4HPRN PRN IV 02/04/25 21:00 02/06/25 05:46 2 MG Nitroglycerin 0.4 mg Q5MINP PRN SL 02/04/25 21:00 Morphine Sulfate 2 mg Q30M PRN IV 02/04/25 21:00 Ceftriaxone Sodium 50 ml @ 100 mls/hr DAILY@09 IV 02/04/25 21:15 02/06/25 09:26 100 MLS/HR Cyclobenzaprine HCl 5 mg Q8HPRN PRN PO 02/04/25 21:15 02/05/25 16:14 5 MG Pantoprazole Sodium 40 mg DAILY IV 02/05/25 10:00 02/06/25 09:28 40 MG Amlodipine Besylate 10 mg DAILY PO 02/05/25 10:00 02/06/25 09:27 10 MG Laboratory Results Laboratory Tests 02/05/25 07:35 Urinalysis Test 02/04/25 20:03 Urine Color Yellow (Yellow) Urine Clarity Clear (Clear) Urine pH 5.5 (5.0-9.0) Urine Specific [place] 1.029 (1.001-1.035) Urine Protein Trace (Negative) H Urine Ketones Negative (Negative) Urine Blood Negative /uL (Negative) Urine Nitrite Negative (Negative) Urine Bilirubin Negative (Negative) Urine Urobilinogen Normal mg/dL (Negative) Urine Leukocyte Esterase 1+ /uL (Negative) Urine RBC 1 /hpf (0 - 4) Urine Microscopic WBC 4 /HPF (0-5) Urine Squamous Epithelial Cells Few /hpf (<5) Urine Bacteria None seen /hpf (None Seen) Urine Mucus Few (None Seen) Urine Glucose Normal mg/dL (Normal) Microbiology Microbiology Date/Time Source Procedure Growth Status 02/04/25 22:07 Blood Blood Culture - Preliminary NO GROWTH AFTER 24 HOURS OF INCUBATION. Resulted 02/04/25 20:03 Voided Urine Urine Culture - Preliminary Resulted Labs and/or images reviewed: Labs reviewed by me, Image(s) reviewed by me Assessment/Plan Assessment/Plan # Hypertensive urgency /Emergency ( accounting for mild kidney injury): 190s/ 96 maximum blood pressure noted , # UTI, likely due to Gram-negative: # intermittent back pain: # History of essential hypertension: # Active nicotine abuse: # possible CLOTILDE due to VMN: # grade 2 obesity: # Colonic diverticulosis without CT evidence of diverticulitis at this time: # History of uterine fibroids # GI prophylaxis: # DVT prophylaxis: #ovarian cyst #his of fibroid 02/05/25: pain control, complained of pain in left lower back request to have obgyn evaluation 02/06/[address] OBGYN to evaluate pain is improved Plan discussed with: Patient My Orders Orders - CHERISE CROCKER DO Procedure Category Date Status Time Mrsa Screen LYLY 02/05/25 In Process 08:10 Date of Service: Feb 06, 2025 Billing Provider: CHERISE CROCKER DO Common Visit Codes: [id number] INP/OBS CARE(HIGH) CHERISE CROCKER DO Feb 06, 2025 11:56
[2025-02-06] MEDS: HYDROcodone-ACET 10/325MG TAB PO PRN (17:08)
[2025-02-07] VITALS (8 sets, daily range): BP systolic 122–142; BP diastolic 76–94; PULSE 76–89; RESP 17–19; TEMP 97.9–98.3; O2SAT 97–100
--- NOTE | 2025-02-07 06:12 | DVHINCON2 ---
Date of service: Feb 07, 2025 Referring Physician hospitalist Reason for Consultation ovarian cyst,fibroid,pelvic pain History of Present Illness pt is admitted for abd pain,hypertensive crisis.she has hx of myomectomyx2,ovarian cystectomy and has had no menses since last yr.her last pap was in sep 2024.pt is under dr beronica mallory. Past Medical History htn,fibroid Past Surgical History myomectomyx2,cystectomy Family History na Social History nulligravid Allergies: Coded Allergies: NO KNOWN ALLERGIES (Unverified , 09/30/19) Home Meds Active Scripts Amlodipine Besylate (NORVASC TABLET) 5 Mg Tb, 1 TAB PO DAILY, #30 TAB 5 Refills Prov:JIMMY PELLETIER MD 01/22/25 Cyclobenzaprine Hcl (CYCLOBENZAPRINE HCL) 7.5 Mg Tab, 7.5 MG PO Q8HP PRN for 3 Days, #9 TAB Prov:JIMMY PELLETIER MD 01/22/25 Ibuprofen Micronized (MOTRIN TABLET) 600 Mg Tb, 600 MG PO TID PRN, #40 TAB *Black box warning-NSAIDS can increase risk of MT & hypertension, GI irritation, ulceration, bleed, perferation. Do not use post cardiac surgery. Use short duration/lowest effective dose. Prov:JIMMY PELLETIER MD 01/22/25 Clonidine Hydrochloride (Clonidine Hcl) 0.2 Mg Tab, 0.2 MG PO DAILY PRN for 20 Days, #20 TAB Prov:KASSIDY VEGA 06/24/22 Current Medications Current Medications Medications (Trade) Dose Ordered Sig/Elijah Route PRN Reason Start Time Stop Time Status Last Admin Acetaminophen/ Hydrocodone Bitart ([place] 10/325MG Tab) 1 tab Q6HP PRN PO MODERATE PAIN (4-6 PAIN SCALE) 02/06/25 13:00 02/06/25 17:08 Review of Systems Constitutional: no fever, chill, weight loss HEENT: no eye pain, no hearing loss, no oral lesion, no scleral icterus Heart: no chest pain, no chest pressure Lung: no cough, no dyspnea with exertion Abdomen: see HPI : no pain with urination, normal appearing urine Musculoskeletal: no joint pain, no muscle pain Neurological: no seizure, no loss of sensation, no weakness in extremities Pysch: no depression, no anxiety Derm: no rash, no jaundice Vital Signs Vital Signs Date Time Temp Pulse Resp B/P (MAP) Pulse Ox O2 Delivery O2 Flow Rate FiO2 02/07/25 05:00 98.2 76 18 122/76 (91) 97 98.2 02/06/25 20:00 Room Air* 0 21 Physical Exam SKIN: [nl] HEENT: [nl] NECK: [nl] CARDIAC: [rrr] PULMONARY: [cta] ABDOMEN: [soft,nt ] MUSCULOSKELETAL: [nl] pelvic-vag ,cx nl,uterus 7wks size,adenxa nt Labs/Diagnostic Data Labs Test 02/05/25 07:35 02/04/25 20:03 02/04/25 14:07 Range/Units White Blood Count 5.9 # 4.4-10.8 10^3/uL Red Blood Count 4.99 4.0-5.20 10^6/uL Hemoglobin 15.7 12.2-16.2 g/dL Hematocrit 46.2 H 36.0-46.0 % Mean Corpuscular Volume 92.5 80.0-100.0 fL Mean Corpuscular Hemoglobin 31.4 28.0-32.0 pg Mean Corpuscular Hemoglobin Concent 33.9 32.0-36.0 g/dL Red Cell Distribution Width 14.0 11.8-14.3 % Platelet Count 220 140-450 10^3/uL Mean Platelet Volume 10.3 6.9-10.8 fL Neutrophils (%) (Auto) 38.3 37.0-80.0 % Lymphocytes (%) (Auto) 40.0 10.0-50.0 % Monocytes (%) (Auto) 16.5 H 0.0-12.0 % Eosinophils (%) (Auto) 3.9 0.0-7.0 % Basophils (%) (Auto) 1.3 0.0-2.0 % Neutrophils # (Auto) 2.3 1.6-8.6 10 ^3/uL Lymphocytes # (Auto) 2.4 0.4-5.4 10 ^3/uL Monocytes # (Auto) 1.0 0-1.3 10 ^3/uL Eosinophils # (Auto) 0.2 0-0.8 10 ^3/uL Basophils # (Auto) 0.1 0-0.2 10 ^3/uL Nucleated Red Blood Cells 0.1 % Sodium Level 143 136-145 mmol/L Potassium Level 3.9 3.5-5.1 mmol/L Chloride Level 110 H 98-107 mmol/L Carbon Dioxide Level 24 20-31 mmol/L Anion Gap 9 5-15 Blood Urea Nitrogen 11 9-23 mg/dL Creatinine 1.00 0.550-1.02 mg/dL Glomerular Filtration Rate Calc 69 >90 mL/min BUN/Creatinine Ratio 11.0 10.0-20.0 Serum Glucose 106 74-106 mg/dL Calcium Level 9.4 8.7-10.4 mg/dL Total Bilirubin 0.3 0.2-1.0 mg/dL Aspartate Amino Transferase (AST) 12 <34 U/L Alanine Aminotransferase (ALT) < 9 7-40 U/L Alkaline Phosphatase 125 H 46-116 U/L Total Protein 7.0 5.7-8.2 g/dL Albumin 4.3 3.2-4.8 g/dL Triglycerides Level 91 < 150 mg/dL Cholesterol Level 154 < 200 mg/dL LDL Cholesterol 115 H < 100 mg/dL HDL Cholesterol 34 L 40-59 mg/dL Urine Color Yellow Yellow Urine Clarity Clear Clear Urine pH 5.5 5.0-9.0 Urine Specific [place] 1.029 1.001-1.035 Urine Protein Trace H Negative Urine Ketones Negative Negative Urine Blood Negative Negative /uL Urine Nitrite Negative Negative Urine Bilirubin Negative Negative Urine Urobilinogen Normal Negative mg/dL Urine Leukocyte Esterase 1+ Negative /uL Urine RBC 1 0 - 4 /hpf Urine Microscopic WBC 4 0-5 /HPF Urine Squamous Epithelial Cells Few <5 /hpf Urine Bacteria None seen None Seen /hpf Urine Mucus Few None Seen Urine Glucose Normal Normal mg/dL Urine Opiates Screen Pos NEGATIVE Urine Fentanyl Screen Neg NEGATIVE Urine Barbiturates Screen Neg NEGATIVE Urine Phencyclidine Screen Neg NEGATIVE Urine Amphetamines Screen Neg NEGATIVE Urine Benzodiazepines Screen Neg NEGATIVE Urine Cocaine Screen Neg NEGATIVE Urine Cannabinoids Screen Neg NEGATIVE Hemoglobin A1c 5.5 <5.7 % A1C Direct Bilirubin 0.2 <0.3 mg/dL Thyroid Stimulating Hormone (TSH) 0.97 0.55-4.78 uIU/mL Beta HCG, Quantitative 1.7 1.5-4.2 mIU/mL Plasma/Serum Blood Alcohol 3.6 <10 mg/dL Microbiology Date/Time Source Procedure Growth Status 02/05/25 08:10 Nose MRSA Screen - Final Complete 02/04/25 22:07 Blood Blood Culture - Preliminary NO GROWTH AFTER 48 HOURS OF INCUBATION. 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
--- NOTE | 2025-02-07 11:56 | DVHPN2 ---
Reviewed: Care Plan, H&P, Labs, Medications, Previous Orders Changes from previous H/P or p: No Changes General: Per HPI Eyes: No Pain, No Vision change, No Conjunctivae inflammation, No Eyelid inflammation, No Other, No Redness ENT: No Ear pain, No Ear discharge, No Nose pain, No Nose discharge, No Nose congestion, No Mouth pain, No Mouth swelling, No Throat pain, No Throat swelling, No Other Cardiovascular: No Chest Pain, No Palpitations, No Orthopnea, No Paroxysmal Noc. Dyspnea, No Edema, No Lt Headedness, No Other Respiratory: No Cough, No Dry, No Shortness of breath, No SOB with excertion, No Wheezing, No Hemoptysis, No Pleuritic Pain, No Sputum, No Other Gastrointestinal: No Nausea, No Vomiting; Abdominal Pain; No Diarrhea; C onstipation; No Melena, No Hematochezia, No Other Genitourinary: Dysuria, Frequency; No Incontinence, No Hematuria, No Retention, No Other Musculoskeletal: No other, No neck pain, No shoulder pain, No arm pain, No back pain, No hand pain, No leg pain, No foot pain Skin: No Rash, No Lesions, No Jaundice, No Bruising, No Other Objective Vitals Vital Signs Date Time Temp Pulse Resp B/P (MAP) Pulse Ox O2 Delivery O2 Flow Rate FiO2 02/07/25 08:30 98.3 80 17 136/86 (103) 97 98.3 02/07/25 07:30 Room Air* 0 21 Intake/Output Intake and Output 02/07/25 07:00 Intake Total 1950 ml Balance 1950 ml Intake Oral 1300 ml IV Total 650 ml # Voids 4 # Bowel Movements 1 General Appearance: Alert, Oriented X3, Cooperative, No acute distress HEENT: Atraumatic Neck: Carotid Bruits [place] Cardiovascular: Regular rate, Normal S1 Medications Current Medications Medications Dose Ordered Sig/Elijah Route Start Time Stop Time Status Last Admin Dose Admin Sodium Chloride 1,000 ml @ 60 mls/hr [id number] IV 02/04/25 21:00 02/06/25 13:04 60 MLS/HR Ondansetron HCl 4 mg Q4HP PRN IV 02/04/25 21:00 Docusate Sodium 100 mg BIDPRN PRN PO 02/04/25 21:00 Acetaminophen 650 mg Q6HP PRN PO 02/04/25 21:00 02/05/25 16:13 650 MG Morphine Sulfate 2 mg Q4HPRN PRN IV 02/04/25 21:00 02/06/25 20:13 2 MG Nitroglycerin 0.4 mg Q5MINP PRN SL 02/04/25 21:00 Morphine Sulfate 2 mg Q30M PRN IV 02/04/25 21:00 Ceftriaxone Sodium 50 ml @ 100 mls/hr DAILY@09 IV 02/04/25 21:15 02/07/25 10:59 100 MLS/HR Cyclobenzaprine HCl 5 mg Q8HPRN PRN PO 02/04/25 21:15 02/05/25 16:14 5 MG Pantoprazole Sodium 40 mg DAILY IV 02/05/25 10:00 02/07/25 10:59 40 MG Amlodipine Besylate 10 mg DAILY PO 02/05/25 10:00 02/06/25 09:27 10 MG Acetaminophen/ Hydrocodone Bitart 1 tab Q6HP PRN PO 02/06/25 13:00 02/07/25 06:42 1 TAB Laboratory Results Laboratory Tests 02/05/25 07:35 Urinalysis Test 02/04/25 20:03 Urine Color Yellow (Yellow) Urine Clarity Clear (Clear) Urine pH 5.5 (5.0-9.0) Urine Specific [place] 1.029 (1.001-1.035) Urine Protein Trace (Negative) H Urine Ketones Negative (Negative) Urine Blood Negative /uL (Negative) Urine Nitrite Negative (Negative) Urine Bilirubin Negative (Negative) Urine Urobilinogen Normal mg/dL (Negative) Urine Leukocyte Esterase 1+ /uL (Negative) Urine RBC 1 /hpf (0 - 4) Urine Microscopic WBC 4 /HPF (0-5) Urine Squamous Epithelial Cells Few /hpf (<5) Urine Bacteria None seen /hpf (None Seen) Urine Mucus Few (None Seen) Urine Glucose Normal mg/dL (Normal) Microbiology Microbiology Date/Time Source Procedure Growth Status 02/05/25 08:10 Nose MRSA Screen - Final Complete 02/04/25 22:07 Blood Blood Culture - Preliminary NO GROWTH AFTER 48 HOURS OF INCUBATION. Resulted 02/04/25 20:03 Voided Urine Urine Culture - Final Complete Assessment/Plan Assessment/Plan # Hypertensive urgency /Emergency ( accounting for mild kidney injury): 190s/ 96 maximum blood pressure noted , # UTI, likely due to Gram-negative: # intermittent back pain: # History of essential hypertension: # Active nicotine abuse: # possible CLOTILDE due to VMN: # grade 2 obesity: # Colonic diverticulosis without CT evidence of diverticulitis at this time: # History of uterine fibroids # GI prophylaxis: # DVT prophylaxis: #ovarian cyst #his of fibroid 02/05/25: pain control, complained of pain in left lower back request to have obgyn evaluation 02/06/[address] OBGYN to evaluate pain is improved 02/07/2025 pt requests to have a vaginal US done states he still has pain Plan discussed with: Patient My Orders Orders - CHERISE CROCKER DO Procedure Category Date Status Time Hydrocodone-Acet PHA 02/06/25 In Process 10/325mg Tab ([place] 13:00 May Shower JOHNNA 02/06/25 In Process 12:58 * [employer] Consultation CONS 02/06/25 Transmitted 13:08 * [employer] CONS 02/07/25 Transmitted Consult Ob Trans Vaginal Us US 02/07/25 Logged 11:48 Date of Service: Feb 07, 2025 Billing Provider: CHERISE CROCKER DO Common Visit Codes: [id number] INP/OBS CARE(HIGH) CHERISE CROCKER DO Feb 07, 2025 11:56
--- NOTE | 2025-02-07 14:46 | DVH ---
TRANSABDOMINAL AND TRANSVAGINAL PELVIC ULTRASOUND CLINICAL HISTORY: ovarian cyst rule out TECHNIQUE: Multiple grayscale ultrasound images were obtained of the pelvis via transabdominal and tr ansvaginal approach. Limited color Doppler and spectral Doppler acquisitions were also obtained. COMPARISON: US PELVIC on DOS: 01/22/25, CT abdomen and pelvis from 02/04/2025 FINDINGS: Uterus: 5.4 x 3.7 x 2.7 cm. The uterine contour is smooth. No myometrial masses are seen. There is a cervical nabothian cyst. Endometrium: 0.2 cm. No endometrial mass is seen. There is an IUD in the endometrial cavity. Right adnexa: right ovary not visualized. No right adnexal mass seen. Left adnexa: left ovary 2.0 x 0.8 x 1.2 cm. Normal arterial blood flow in the ovary. No left adnexal mass seen. Tiny cyst or prominent follicle in the left ovary measures 5 mm. Other: Small ascites in the cul-de-sac likely physiologic. IMPRESSION: 1. IUD in the uterus. 2. Unremarkable pelvic ultrasound although there is nonvisualization of the right ovary.
[2025-02-08 05:00] VITALS: BP 141/89; PULSE 81; RESP 14; TEMP 97.3; O2SAT 97
[2025-02-08 07:30] VITALS: PULSE 81; PULSE 87; RESP 16
[2025-02-08 09:00] VITALS: BP 135/71; PULSE 77; RESP 16; TEMP 97.8; O2SAT 98
[2025-02-08 13:00] VITALS: BP 153/93; PULSE 89; RESP 17; TEMP 98.2; O2SAT 98
--- NOTE | 2025-02-08 13:31 | DVHDS2 ---
Discharge Summary Date of Admission Feb 04, 2025 at 20:48 Date of Discharge: Feb 08, 2025 Labs/Diagnostic Data: Laboratory Results Test 02/05/25 07:35 02/04/25 20:03 02/04/25 14:07 White Blood Count 5.9 10^3/uL (4.4-10.8) Red Blood Count 4.99 10^6/uL (4.0-5.20) Hemoglobin 15.7 g/dL (12.2-16.2) Hematocrit 46.2 % (36.0-46.0) Mean Corpuscular Volume 92.5 fL (80.0-100.0) Mean Corpuscular Hemoglobin 31.4 pg (28.0-32.0) Mean Corpuscular Hemoglobin Concent 33.9 g/dL (32.0-36.0) Red Cell Distribution Width 14.0 % (11.8-14.3) Platelet Count 220 10^3/uL (140-450) Mean Platelet Volume 10.3 fL (6.9-10.8) Neutrophils (%) (Auto) 38.3 % (37.0-80.0) Lymphocytes (%) (Auto) 40.0 % (10.0-50.0) Monocytes (%) (Auto) 16.5 % (0.0-12.0) Eosinophils (%) (Auto) 3.9 % (0.0-7.0) Basophils (%) (Auto) 1.3 % (0.0-2.0) Neutrophils # (Auto) 2.3 10 ^3/uL (1.6-8.6) Lymphocytes # (Auto) 2.4 10 ^3/uL (0.4-5.4) Monocytes # (Auto) 1.0 10 ^3/uL (0-1.3) Eosinophils # (Auto) 0.2 10 ^3/uL (0-0.8) Basophils # (Auto) 0.1 10 ^3/uL (0-0.2) Nucleated Red Blood Cells 0.1 % Sodium Level 143 mmol/L (136-145) Potassium Level 3.9 mmol/L (3.5-5.1) Chloride Level 110 mmol/L (98-107) Carbon Dioxide Level 24 mmol/L (20-31) Anion Gap 9 (5-15) Blood Urea Nitrogen 11 mg/dL (9-23) Creatinine 1.00 mg/dL (0.550-1.02) Glomerular Filtration Rate Calc 69 mL/min (>90) BUN/Creatinine Ratio 11.0 (10.0-20.0) Serum Glucose 106 mg/dL (74-106) Calcium Level 9.4 mg/dL (8.7-10.4) Total Bilirubin 0.3 mg/dL (0.2-1.0) Aspartate Amino Transferase (AST) 12 U/L (<34) Alanine Aminotransferase (ALT) < 9 U/L (7-40) Alkaline Phosphatase 125 U/L (46-116) Total Protein 7.0 g/dL (5.7-8.2) Albumin 4.3 g/dL (3.2-4.8) Triglycerides Level 91 mg/dL (< 150) Cholesterol Level 154 mg/dL (< 200) LDL Cholesterol 115 mg/dL (< 100) HDL Cholesterol 34 mg/dL (40-59) Urine Color Yellow (Yellow) Urine Clarity Clear (Clear) Urine pH 5.5 (5.0-9.0) Urine Specific [place] 1.029 (1.001-1.035) Urine Protein Trace (Negative) Urine Ketones Negative (Negative) Urine Blood Negative /uL (Negative) Urine Nitrite Negative (Negative) Urine Bilirubin Negative (Negative) Urine Urobilinogen Normal mg/dL (Negative) Urine Leukocyte Esterase 1+ /uL (Negative) Urine RBC 1 /hpf (0 - 4) Urine Microscopic WBC 4 /HPF (0-5) Urine Squamous Epithelial Cells Few /hpf (<5) Urine Bacteria None seen /hpf (None Seen) Urine Mucus Few (None Seen) Urine Glucose Normal mg/dL (Normal) Urine Opiates Screen Pos (NEGATIVE) Urine Fentanyl Screen Neg (NEGATIVE) Urine Barbiturates Screen Neg (NEGATIVE) Urine Phencyclidine Screen Neg (NEGATIVE) Urine Amphetamines Screen Neg (NEGATIVE) Urine Benzodiazepines Screen Neg (NEGATIVE) Urine Cocaine Screen Neg (NEGATIVE) Urine Cannabinoids Screen Neg (NEGATIVE) Hemoglobin A1c 5.5 % A1C (<5.7) Direct Bilirubin 0.2 mg/dL (<0.3) Thyroid Stimulating Hormone (TSH) 0.97 uIU/mL (0.55-4.78) Beta HCG, Quantitative 1.7 mIU/mL (1.5-4.2) Plasma/Serum Blood Alcohol 3.6 mg/dL (<10) Other Laboratory Tests 02/05/25 07:35 Brief Hx & Hospital Course: # Hypertensive urgency /Emergency ( accounting for mild kidney injury): 190s/ 96 maximum blood pressure noted , # UTI, likely due to Gram-negative: # intermittent back pain: # History of essential hypertension: # Active nicotine abuse: # possible CLOTILDE due to VMN: # grade 2 obesity: # Colonic diverticulosis without CT evidence of diverticulitis at this time: # History of uterine fibroids # GI prophylaxis: # DVT prophylaxis: #ovarian cyst #his of fibroid 02/05/25: pain control, complained of pain in left lower back request to have obgyn evaluation 02/06/[address] OBGYN to evaluate pain is improved 02/07/2025 pt requests to have a vaginal US done states he still has pain 02/08/2025 discharged to home Condition at Discharge: Fair Final Diagnosis/Problems List see above Discharge Disposition: Home Discharge Instruct/Medications Diet: Cardiac 2g Na,low cholest Activity: No Restrictions, As Tolerated Discharge Statement: "Patient was advised to return to the ER or call 911 if any headaches, dizziness, shortness of breath, chest pain, abdominal pain, bleeding, fevers, or worsening of medical condition. Patient was counseled about treatment plan, medications, possible side effects, patientverbalized understanding. All questions were answered to the best of my ability. This discharge took greater then 30 minutes in planning, reviewing documentation, counseling the patient, and discussing with other team members." ASSESSMENT ASSESSMENT Assessment Date of Service: Feb 08, 2025 Billing Provider: CHERISE CROCKER DO Common Visit Codes: 65528-[facility]/OBS DISCH DAY >30min CHERISE CROCKER DO Feb 08, 2025 13:31
[2025-02-08 15:38] VITALS: BP 135/71; PULSE 77; RESP 16; TEMP 97.8; O2SAT 98
== END 2025-02-08 16:16 | disposition home or self-care (01) | DRG 244 ==
LOC: ER 13:34 → OVERFLOW 20:48 → TELE-WESTW 02-05 18:15
PROVIDERS: ADMIT Internal Medicine; ATTEND Internal Medicine
DX: K57.30 Diverticulosis of large intestine without perforation or abscess without bleeding (principal); N17.0 Acute kidney failure with tubular necrosis; E11.65 Type 2 diabetes mellitus with hyperglycemia; N30.00 Acute cystitis without hematuria; N83.209 Unspecified ovarian cyst, unspecified side; I16.1 Hypertensive emergency; Z68.36 Body mass index [BMI] 36.0-36.9, adult; M54.9 Dorsalgia, unspecified; E66.9 Obesity, unspecified; F17.210 Nicotine dependence, cigarettes, uncomplicated; I10 Essential (primary) hypertension; G89.29 Other chronic pain
CPT/HCPCS: 36415; 74176; 76856; 80048; 80053; 80061; 80076; 80307; 80320; 81001; 83036; 84443; 84702; 85025; 87040; 87081; 87086; 96365; 96375; 99291; 99292; G0378; J2405; J2470